=== PATIENT | male | born 1945 | race Asian ===

== ENCOUNTER 2022-10-01 19:13 | Emergency (ER) | payer MEDICARE ==
[~2022-10-01] VITALS: Ht 174 cm; Wt 81.6 kg
[2022-10-01] MEDS ORDERED: BACITRACIN ZINC OINT UDPKT TOP ONE (22:30)
[2022-10-01] MEDS ORDERED: LIDOCAINE HCL/PF 1% 10 MG/ML 5ML VIAL INFIL ONE (22:30)
[2022-10-02 00:23] VITALS: BP 127/64
== END 2022-10-02 00:24 | disposition home or self-care (01) ==
LOC: ER 19:13
DX: S61.215A Laceration without foreign body of left ring finger without damage to nail, initial encounter (principal); W26.8XXA Contact with other sharp object(s), not elsewhere classified, initial encounter; Y93.89 Activity, other specified; Y92.89 Other specified places as the place of occurrence of the external cause; Y99.8 Other external cause status; E78.00 Pure hypercholesterolemia, unspecified; I10 Essential (primary) hypertension
CPT/HCPCS: 12001; 73140; 93005; 99283